=== PATIENT | male | born 1940 | race Caucasian/White ===

== ENCOUNTER 2018-03-31 20:32 | Inpatient (IN) | payer MEDICARE ==
[~2018-03-31] VITALS: Ht 182.9 cm; Wt 68.7 kg
[~2018-03-31 20:32] MED LIST: ACETAMINOP325 MG/10 PO; ALDACTONE25 MG PO; AMLODIPINE BESYL5 MG PO; ANTACID EXTRA300 MG PO; ARICEPT5 MG PO; ASPIR 8181 MG PO; ASPIRIN325 MG PO; ASPIRIN81 MG PO; ATORVASTATIN CA20 MG PO; BLUE EMU CREAM TOP; CENTRUM SILVER1 EAC3 PO; DIOVAN HCT 3201 EAC1 PO; DIOVAN160 MG PO; FLOVENT DISKUS50 MCG; FUROSEMIDE40 MG PO; GABAPENTIN300 MG PO; GLIMEPIRIDE2 MG PO; HYDROCHLOROTH12.5 M1 PO; IPRATROPIUM BRO30 ML; KLOR-CON M2020 MEQ PO; KLOR-CON25 MEQ PO; METFORMIN HCL500 M1 PO; METFORMIN HCL500 MG PO; METOPROLOL TART25 MG PO; MULTIVITAMINS1 EAC7 PO; OMEPRAZOLE20 M1 PO; RANITIDINE HCL300 MG PO; SUCRALFATE1 GM PO; TRAMADOL HCL E100 MG PO; ULTRAM50 MG PO; VALSARTAN/HCTZ PO; VITAMIN B12 SL; VITAMIN B12-FO1 EACH SL; ZOFRAN ODT4 MG SL
[2018-03-31] MEDS ORDERED: GLIMEPIRIDE2 MG PO (21:07)
[2018-03-31] MEDS ORDERED: IPRATROPIU0.2 MG/1 M NEB (21:07)
[2018-03-31] MEDS ORDERED: ARICEPT5 MG PO (21:07)
[2018-03-31] MEDS ORDERED: JANUVIA100 MG PO (21:08)
[2018-03-31 21:47] LABS: BASOPHILS % 0.2 % (0.0-1.0); EOSINOPHILS # (AUTO) 0.1 (0.0-0.4); EOSINOPHILS % 0.8 % (0.0-6.0); HEMATOCRIT 34.9 % (38.2-49.6); HEMOGLOBIN 11.7 g/dL (14.0-18.0); LYMPHOCYTES % 8.7 % (18.0-39.1); MEAN CORPUSCULAR HEMOGLOBIN 32.8 pg (28-32); MEAN CORPUSCULAR HGB CONC 33.5 g/dL (31-35); MEAN CORPUSCULAR VOLUME 97.8 fL (81-99); MONOCYTES # (AUTO) 0.7 (0.2-0.8); MONOCYTES % 5.8 % (4.4-11.3); NEUTROPHILS % 83.8 % (38.7-80.0); PLATELET COUNT 280 x10e3/uL (140-360); RED BLOOD COUNT 3.57 x10e6/uL (4.3-5.7); RED CELL DISTRIBUTION WIDTH 13.1 % (11.7-14.4)
[2018-03-31 22:01] LABS: ALBUMIN 3.9 g/dL (3.5-5.0); ALBUMIN/GLOBULIN RATIO 1.1 (0.8-2.0); ANION GAP 18.8 mmol/L (8-16); CALCIUM 9.5 mg/dL (8.4-10.2); CREATININE, SERUM 1.36 mg/dL (0.72-1.25); MAGNESIUM 2.3 MG/DL (1.3-2.1); POTASSIUM 3.8 mmol/L (3.5-5.1)
[2018-03-31] MEDS ORDERED: CEFEPIME HCL 2 GM VIAL IV STA (22:04)
[2018-03-31] MEDS ORDERED: SODIUM CHLORIDE 0.9% 1000ML 1,000 ML IV STA (22:04)
[2018-03-31] MEDS ORDERED: SODIUM CHLORIDE 0.9% 1000ML 1,000 ML ONE (22:05)
[2018-03-31 22:08] LABS: CREATINE KINASE MB 4.6 ng/mL (0-5.0)
[2018-03-31] MEDS ORDERED: DIPHENHYDRAMINE HCL INJ 50 MG/ML VIAL IV ONE (22:15)
[2018-03-31] MEDS ORDERED: LORAZEPAM INJ 2 MG/ML VIAL IM ONE (22:15)
[2018-03-31] MEDS ORDERED: VANCOMYCIN 1GM/NS 250 ML 250 ML IV ONE (22:15)
[2018-03-31] MEDS ORDERED: HALOPERIDOL LACTATE 5 MG/ML VIAL IM ONE (22:15)
[2018-03-31] MEDS ORDERED: VANCOMYCIN 1GM/NS 250 ML 250 ML ONE (22:34)
--- NOTE | 2018-03-31 23:07 | Diagnostic Imaging Report ---
EXAM: CHEST SINGLE (PORTABLE), AP 1 view INDICATION: Fall, low O2 sats COMPARISON: AP view of the chest July 24, 2015 FINDINGS: LINES/TUBES: None LUNGS: Stable findings of interstitial edema and bibasilar atelectasis. PLEURA: Indeterminate for small effusion on the left. HEART AND MEDIASTINUM: Stable enlargement of the cardiomediastinal silhouette and surgical changes of coronary artery bypass. BONES AND SOFT TISSUES: No acute findings. IMPRESSION: Stable appearance of the chest with interstitial edema and bibasilar atelectasis. Signed by: Dr. Verna Weber M.D. on 03/31/2018 11:04 PM
[2018-03-31 23:45] LABS: BILIRUBIN,URINE NEGATIVE (NEGATIVE); CLARITY,URINE CLEAR (CLEAR); COLOR,URINE YELLOW (YELLOW); KETONES,URINE NEGATIVE (NEGATIVE); LEUKOCYTE ESTERASE ,URINE NEGATIVE (NEGATIVE); NITRITE,URINE NEGATIVE (NEGATIVE); PROTEIN,URINE DIPSTICK 1+ (NEGATIVE); URINE UROBILINOGEN 0.2 mg/dL (0.2 - 1)
[2018-03-31 23:46] LABS: WBC,URINE (MAN) 0-5 /HPF (0-5)
[2018-03-31 23:47] LABS: EPITHELIAL CELLS,URINE FEW /LPF
--- NOTE | 2018-04-01 01:08 | Diagnostic Imaging Report ---
EXAMINATION: Head CT HISTORY: Status post fall, head trauma, hypertension COMPARISON: Brain MRI on 04/25/2015. TECHNIQUE: Multidetector axial images were obtained without contrast from the foramen magnum to the vertex . The images were reconstructed using brain and bone algorithms. Thin section brain images were reformatted into coronal and sagittal planes. Image quality: Motion/streaking artifact limits the evaluation of the skull base and posterior cranial fossa. Dose modulation, iterative reconstruction, and/or weight based adjustment of the mA/kV was utilized to reduce the radiation dose to as low as reasonably achievable. FINDINGS: Parenchyma: 1. Few scattered white matter hypodensities, most likely nonspecific chronic microvascular ischemic changes. 2. No mass or hemorrhage. No CT evidence of acute territorial vascular insult. Extra-axial spaces:No abnormal density. No extra-axial fluid collections Brain volume: Normal for age. Ventricles: No hydrocephalus or displacement. Arteries: No density suggestive of thrombus. Dural sinuses: No abnormal density. Extra-axial spaces: No abnormal density. Foramen magnum: No mass, Chiari malformation, or basilar invagination. Sella: Partially empty, mostly CSF filled. Paranasal/mastoid sinuses: Imaged portions unremarkable. Skull/Scalp: No lytic or blastic lesions. No fractures. IMPRESSION: 1. No acute posttraumatic intracranial abnormality, particularly no hemorrhage. 2. Persistent mild chronic microvascular ischemic changes. Signed by: Dr. Leela Maria M.D. on 04/01/2018 1:04 AM
--- NOTE | 2018-04-01 01:14 | Diagnostic Imaging Report ---
EXAMINATION: CT of the cervical spine HISTORY: Status post fall, head trauma, hypertension, head and neck pain. COMPARISON: None available TECHNIQUE: Multidetector helical axial images were obtained without contrast from the foramen magnum to T1. The images were reconstructed using bone and soft tissue algorithms and were viewed in axial, sagittal and coronal planes. Dose modulation, iterative reconstruction, and/or weight based adjustment of the mA/kV was utilized to reduce the radiation dose to as low as reasonably achievable. Image quality: Artifact from patient's motion and rotation limits evaluation. FINDINGS: Alignment: Age-indeterminate anterolisthesis at C4-C5. Cervicothoracic kyphosis. Soft tissues: Normal Vertebrae: Normal height and density. No acute fracture, infection or neoplasm. Minimal chronic anterior wedging of the C5, C6, C7, T1 and T2 vertebral bodies. Degenerative changes: C1-C2: Normal C2-C3: Disc osteophyte, uncovertebral and facet arthrosis. Moderate canal stenosis. C3-C4: Disc osteophyte, uncovertebral and facet arthrosis. Moderate canal and foraminal stenoses. C4-C5: Disc osteophyte, uncovertebral and facet arthrosis. Moderate canal and left foraminal stenosis. C5-C6: Disc osteophyte, uncovertebral and facet arthrosis. Moderate canal and foraminal narrowing. C6-C7: Disc osteophyte, no significant stenoses C7-T1: Facet arthrosis. Minimal anterolisthesis. IMPRESSION: Suboptimal study due to patient motion, if clinically indicated consider repeat study. 1. In spite of this limitation no discrete acute cervical spine fracture or dislocation. 2. Chronic multilevel degenerative changes as detailed above. Note: Acute postraumatic spinal cord, vascular or ligamentous injuries cannot adequately be assessed by CT. Signed by: Dr. Leela Maria M.D. on 04/01/2018 1:11 AM
[2018-04-01] MEDS ORDERED: DEXTROSE 50% SYRINGE 50 ML IV PRN (01:45)
[2018-04-01] MEDS ORDERED: ONDANSETRON HCL INJ 2 MG/ML VIAL IV PRN (01:45)
[2018-04-01] MEDS ORDERED: CEFEPIME HCL 1 GM VIAL IV SCH (01:45)
--- OUTSIDE RECORDS SUMMARY | 2018-04-01 01:46 | XMS REPORT ---
Author [facility] Address Unknown Phone Unavailable Care Team Providers Care Appeals Rn Name Role Phone Anne ROWAN Unavailable Unavailable Problems This patient has no known problems. Allergies, Adverse Reactions, Alerts This patient has no known allergies or adverse reactions. Medications This patient has no known medications. Results Test Description Test Time Test Comments Text Results Atomic Results Result Comments CT CERVICAL SPINE WO 2018-04-01 01:05:00 [place] [address] Patient Name: EMELYN LOVE MR #: [id number] : 1940 Age/Sex: 77/M Req #: [id number] Adm Physician: Ordered by: RENEA ARCHULETA SCIENTIFIC AIDE Report #: [id number] Location: ER Room/Bed: Procedure: [id number] CT/CT CERVICAL SPINE WO Exam Date: 04/01/18 Exam Time: 2349 REPORT STATUS: Signed EXAMINATION: CT of the cervical spine HISTORY: Status post fall, head trauma, hypertension, head and neck pain. COMPARISON: None available TECHNIQUE: Multidetector helical axial images were obtained without contrast from the foramen magnum to T1. The images were reconstructed using bone and soft tissue algorithms and were viewed in axial, sagittal and coronal planes. Dose modulation, iterative reconstruction, and/or weight based adjustment of the mA/kV was utilized to reduce the radiation dose to as low as reasonably achievable. Image quality: Artifact from patient's motion and rotation limits evaluation. FINDINGS: Alignment: Age- indeterminate anterolisthesis at C4-C5. Cervicothoracic kyphosis. Soft tissues: Normal Vertebrae: Normal height and density. No acute fracture, infection or neoplasm. Minimal chronic anterior wedging of the C5, C6, C7, T1 and T2 vertebral bodies. Degenerative changes: C1-C2: Normal C2-C3: Disc osteophyte, uncovertebral and facet arthrosis. Moderate canal stenosis. C3-C4: Disc osteophyte, uncovertebral and facet arthrosis. Moderate canal and foraminal stenoses. C4-C5: Disc osteophyte, uncovertebral and facet arthrosis. Moderate canal and left foraminal stenosis. C5-C6: Disc osteophyte, uncovertebral and facet arthrosis. Moderate canal and foraminal narrowing. C6-C7: Disc osteophyte, no significant stenoses C7-T1: Facet arthrosis. Minimal anterolisthesis. IMPRESSION: Suboptimal study due to patient motion, if clinically indicated consider repeat study. 1. In spite of this limitation no discrete acute cervical spine fracture or dislocation. 2. Chronic multilevel degenerative changes as detailed above. Note: Acute postraumatic spinal cord, vascular or ligamento us injuries cannot adequately be assessed by CT. Signed by: Dr. Saul Maria M.D. on 04/01/2018 1:11 AM Dictated By: SAUL MARIA MD 0 Transcribed By: MIKEY on 04/01/18110 COPY TO: RENEA ARCHULETA NP CT BRAIN WO 2018-04-01 01:03:00 [place] [address] Patient Name: EMELYN LOVE MR #: [id number] : 1940 Age/Sex: 77/M Req #: [id number] Adm Physician: Ordered by: RENEA ARCHULETA NP Report #: [id number] Location: ER Room/Bed: Procedure: [id number] CT/CT BRAIN WO Exam Date: 04/01/18 Exam Time: 2349 REPORT STATUS: Signed EXAMINATION: Head CT HISTORY: Status post fall, head tr auma, hypertension COMPARISON: Brain MRI on 04/25/2015. TECHNIQUE: Multidetector axial images were obtained without contrast from the foramen magnum to the vertex . The images were reconstructed using brain and bone algorithms. Thin section brain images were reformatted into coronal and sagittal planes. Image quality: Motion/streaking artifact limits the evaluation of the skull base and posterior cranial fossa. Dose modulation, iterative reconstruction, and/or weight based adjustment of the mA/kV was utilized to reduce the radiation dose to as low as reasonably achievable. FINDINGS: Parenchyma: 1. Few scattered white matter hypodensities, most likely nonspecific chronic microvascular ischemic changes. 2. No mass or hemorrhage. No CT evidence of acute territorial vascular insult. Extra-axial spaces:No abnormal density. No extra-axial fluid collections Brain volume: Normal for age. Ventricles: No hydrocephalus or displacement. Arteries: No density suggestive of thrombus. Dural sinuses: No abnormal density. Extra-axial spaces: No abnormal density. Foramen magnum: No mass, Chiari malfo rmation, or basilar invagination. Sella: Partially empty, mostly CSF filled. Paranasal/mastoid sinuses: Imaged portions unremarkable. Skull/Scalp: No lytic or blastic lesions. No fractures. IMPRESSION: 1. No acute posttraumatic intracranial abnormality, particularly no hemorrhage. 2. Persistent mild chronic microvascular ischemic changes. Signed by: Dr. Saul Maria M.D. on 04/01/2018 1:04 AM Dictated By: SAUL MARIA MD 3 Transcribed By: MIKEY on 04/01/18103 COPY TO: RENEA ARCHULETA SCIENTIFIC AIDE CHEST SINGLE (PORTABLE) 2018-03-31 23:02:00 [place] [address] Patient Name: EMELYN LOVE MR #: [id number] : 1940 Age/Sex: 77/M Req #: [id number] [facility] Physician: Ordered by: TIRSO ROWAN MD Report #: [id number] Location: ER Room/Bed: Procedure: [id number] DX/CHEST SINGLE (PORTABLE) Exam Date: Exam Time: REPORT STATUS: Signed EXAM: CHEST SINGLE (PORTABLE), AP 1 view INDICATION: Fall, l ow O2 sats COMPARISON: AP view of the chest July 24, 2015 FINDINGS: LINES/TUBES: None LUNGS: Stable findings of interstitial edema and bibasilar atelectasis. PLEURA: Indeterminate for small effusion on the left. HEART AND MEDIASTINUM: Stable enlargement of the cardiomediastinal silhouette and surgical changes of coronary artery bypass. BONES AND SOFT TISSUES: No acute findings. IMPRESSION: Stable appearance of the chest with interstitial edema and bibasilar atelectasis. Signed by: Dr. Shen Weber M.D. on 03/31/2018 11:04 PM Dictated By: SHEN WEBER MD 03 Transcribed By: MIKEY on 03/31/182303 COPY TO: TIRSO ROWAN MD
[2018-04-01 06:01] LABS: CREATINE KINASE MB 11.3 ng/mL (0-5.0)
[2018-04-01] MEDS: INSULIN LISPRO 100 UNIT/1 ML 3ML VIAL SQ SCH ×4 (08:08→21:33)
--- NOTE | 2018-04-01 09:00 | Diagnostic Imaging Report ---
PROCEDURE:X-RAY PELVIS, AP VIEW COMPARISON:None. INDICATIONS:FALL FINDINGS: No acute, displaced fracture or dislocation. Femoral heads project appropriately over the acetabula. Mild symmetric joint space narrowing with marginal osteophytosis of the hip joints. Sacroiliac joints are maintained. Degenerative facet arthropathy of the lumbar spine, partially visualized. Soft tissues unremarkable. Atherosclerotic vascular calcifications. CONCLUSION: No acute osseous abnormalities. Dictated by: Mihai Rain M.D. on 04/01/2018 at 9:10 Electronically approved by: Mihai Rain M.D. on 04/01/2018 at 9:10
--- NOTE | 2018-04-01 09:02 | Diagnostic Imaging Report ---
PROCEDURE:X-RAY RIGHT ELBOW, COMPLETE COMPARISON:None. INDICATIONS:FALL FINDINGS: No acute, displaced fracture or dislocation. No elbow joint effusion. Soft tissues are unremarkable. Joint space is well-maintained. CONCLUSION: No acute osseous abnormality. Dictated by: Mihai Rain M.D. on 04/01/2018 at 9:12 Electronically approved by: Mihai Rain M.D. on 04/01/2018 at 9:12
--- NOTE | 2018-04-01 09:07 | Diagnostic Imaging Report ---
PROCEDURE:X-RAY LEFT KNEE, THREE OR MORE VIEWS COMPARISON:None. INDICATIONS:FALL FINDINGS: No acute, displaced fracture or dislocation. No joint effusion. Moderate tricompartmental joint space narrowing with marginal osteophytosis. Meniscal calcifications with partial medial extrusion of the medial meniscus. Atherosclerotic vascular calcifications. Surgical clips in the soft tissues in the medial lower thigh may reflect prior venous graft harvest. Soft tissues otherwise unremarkable. CONCLUSION: No acute osseous abnormalities. Moderate tricompartmental osteoarthrosis. Dictated by: Mihai Rain M.D. on 04/01/2018 at 9:17 Electronically approved by: Mihai Rain M.D. on 04/01/2018 at 9:17
[2018-04-01] MEDS: FAMOTIDINE 20 MG/2 ML VIAL IV SCH ×2 (09:15→23:16)
[2018-04-01] MEDS: CEFEPIME HCL 1 GM VIAL IV SCH (10:50)
--- NOTE | 2018-04-01 14:20 | Consultation ---
DATE OF CONSULTATION: April 01, 2018 CARDIOLOGY CONSULTATION REASON FOR CONSULTATION: Elevated troponins. CHIEF COMPLAINT: Status post falls. HISTORY OF PRESENT ILLNESS: This is a 77-year-old male with history of frontal temporal dementia, CAD status post CABG in 2014, chronic systolic heart failure, debility, failure to thrive, diabetes, hypertension. Patient presents to [facility] ER apparently with multiple falls, was noted to be in acute kidney injury. Troponin was checked, which troponin was 0.6; therefore, Cardiology was consulted. Patient seen in room. Again, patient is demented. patient unable to give any information, but is at bedside. reports that patient has been falling on multiple occasions. He fell twice on Sunday. He again fell twice on Sunday, and again he fell Sunday evening in the shower; and, therefore, had patient come to the ER for further evaluation. At baseline patient uses a walker for assistance and has to grab the snyder for assistance to keep himself up. Patient is nonverbal. Patient unable to give any information. No reports of dizziness, lightheadedness, chest pain, shortness of breath. EKG noted, sinus rhythm with no acute changes suggestive of an acute event. PAST MEDICAL HISTORY 1. CAD status post CAB[place] [address] Tubbs with chronic heart failure. 2. Diabetes. 3. Hypertension. 4. Reflux. 5. Colon cancer status post colon resection. 6. Frontal temporal dementia. 7. Arthritis. SURGICAL HISTORY 1. Hemorrhoidectomy. 2. Coronary artery disease status post CABG in November 2014. 3. Left shoulder surgery. FAMILY HISTORY: Mother at age of 70, apparently heart disease. Father at the age of 80, had a history of liver cancer. SOCIAL HISTORY: He is . He is a former smoker, and he quit in 1966. No alcohol use. 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 ALLERGIES: NO KNOWN ALLERGIES. REVIEW OF SYSTEMS: Unable to obtain due to patient's baseline dementia. PHYSICAL EXAMINATION VITAL SIGNS: Height 70 inches, weight 150 pounds, BMI 21. Current vital signs: Temperature 98.3, pulse 81, respiratory rate 16, blood pressure 139/96, pulse ox 98% on 2 liters nasal cannula. GENERAL: This is a demented male unable to give any information, very easily agitated. SKIN-MOELLER: Several abrasions noted in his bilateral elbows and also bilateral knees after falls. HEENT: Normocephalic. Pupils equal and reactive. Extraocular motor intact. Trachea midline. Oral mucosa pink. No JVD. No thyromegaly noted. HEART: Regular rate and rhythm. No murmurs or clicks noted. LUNGS: Rhonchi throughout and intermittent wheezing. ABDOMEN: Soft, nontender, nondistended. No organomegaly noted. MUSCULOSKELETAL: Abrasions in bilateral elbows and bilateral knees. Also positive for sternotomy. VASCULAR: +2 bilateral radial pulses, +1 DP/PT pulses. No lower extremity edema noted. NEUROLOGIC: Unable to assess due to patient's baseline dementia and patient unable to follow any commands, becomes very agitated, and also patient is nonverbal. LABS: White count 11.9, hemoglobin 11, hematocrit 34, platelets 280. CHEMISTRY: Lactic acid 65. Sodium 135, potassium 3.8, chloride 99, bicarb 21, BUN 27, creatinine 1.3, glucose 318. Troponin initial 0.3, next 0.6. BNP 821. CHEST X-RAY: Showing some interstitial edema. X-RAY OF THE ELBOW, KNEE, PELVIS: No fractures. COMPUTED TOMOGRAPHY OF THE BRAIN: Mild chronic microvascular ischemic changes. CERVICAL SPINE: Degenerative joint disease. No discrete cervical spine fractures or dislocations. ASSESSMENT 1. Sepsis. 2. Status post falls. 3. Failure to thrive. 4. Dementia. 5. Debility. 6. Acute kidney injury. 7. Diabetes. 8. Coronary artery disease status post coronary artery bypass graft in 2014. 9. Chronic systolic heart failure. PLAN-MOELLER 1. Patient presents with multiple falls noted with lactic acidosis, has received fluids and antibiotics. No reports of chest pains or active anginal symptoms. Will treat patient medically given his multiple health issues. However, will get an echo to evaluate heart function and structure. Will start patient on aspirin therapy. 2. Will continue telemetry monitoring to evaluate for any arrhythmias. 3. Will follow patient's progression and adjust cardiotherapy as course dictates. Thank you very much for this consult. Dictated by: Mihai Lorenz NP Job#: [id number]
[2018-04-02] MEDS: CEFEPIME HCL 1 GM VIAL IV SCH ×3 (01:31→22:41)
[2018-04-02] MEDS: ZIPRASIDONE 20 MG VIAL IM PRN ×2 (05:00→16:27)
[2018-04-02 07:28] LABS: BASOPHILS % 0.4 % (0.0-1.0); EOSINOPHILS # (AUTO) 0.1 (0.0-0.4); EOSINOPHILS % 0.5 % (0.0-6.0); HEMATOCRIT 40.2 % (38.2-49.6); HEMOGLOBIN 13.6 g/dL (14.0-18.0); LYMPHOCYTES # (AUTO) 1.5 (1.0-3.2); LYMPHOCYTES % 15.5 % (18.0-39.1); MEAN CORPUSCULAR HEMOGLOBIN 32.5 pg (28-32); MEAN CORPUSCULAR HGB CONC 33.8 g/dL (31-35); MEAN CORPUSCULAR VOLUME 95.9 fL (81-99); MONOCYTES # (AUTO) 0.5 (0.2-0.8); MONOCYTES % 5.5 % (4.4-11.3); NEUTROPHILS # (AUTO) 7.3 (2.1-6.9); NEUTROPHILS % 77.9 % (38.7-80.0); PLATELET COUNT 304 x10e3/uL (140-360); RED BLOOD COUNT 4.19 x10e6/uL (4.3-5.7); RED CELL DISTRIBUTION WIDTH 13.1 % (11.7-14.4)
[2018-04-02] MEDS: INSULIN LISPRO 100 UNIT/1 ML 3ML VIAL SQ SCH ×4 (07:48→21:00)
[2018-04-02 07:50] LABS: ALANINE AMINOTRANSFERASE 42 IU/L (0-55); ALBUMIN 3.7 g/dL (3.5-5.0); ALBUMIN/GLOBULIN RATIO 0.9 (0.8-2.0); ALKALINE PHOSPHATASE 90 IU/L (40-150); ANION GAP 18.2 mmol/L (8-16); BLOOD UREA NITROGEN 19 mg/dL (7-26); BUN/CREATININE RATIO 19 (6-25); CALCIUM 9.3 mg/dL (8.4-10.2); CARBON DIOXIDE 22 mmol/L (22-29); CHLORIDE 102 mmol/L (98-107); CHOL/HDL RATIO 2.8 (3.9-4.7); CHOLESTEROL 166 MD/DL (0-199); EST GLOMERULAR FILTRATION RATE > 60 ML/MIN (60-); GLUCOSE 191 mg/dL (74-118); HDL CHOLESTEROL 60 MG/DL (40-60); LDL CHOLESTEROL 92 MG/DL (60-130); POTASSIUM 3.2 mmol/L (3.5-5.1); SODIUM 139 mmol/L (136-145); TRIGLYCERIDES 68 MG/DL (0-149)
[2018-04-02] MEDS: FAMOTIDINE 20 MG/2 ML VIAL IV SCH ×2 (08:40→22:41)
[2018-04-02] MEDS: ASPIRIN 81 MG ENTERIC COATED PO SCH (08:40)
[2018-04-02] MEDS ORDERED: POTASSIUM CHLORIDE 20 MEQ TAB CR PO STA (11:35)
[2018-04-02] MEDS: METOPROLOL TARTRATE 25 MG TAB PO SCH (17:00)
[2018-04-02 20:00] VITALS: BP 169/91
[2018-04-03] VITALS (7 sets, daily range): BP systolic 120–169; BP diastolic 60–93
[2018-04-03] MEDS: ZIPRASIDONE 20 MG VIAL IM PRN ×3 (01:03→09:48)
[2018-04-03] MEDS: INSULIN LISPRO 100 UNIT/1 ML 3ML VIAL SQ SCH ×4 (07:30→21:28)
[2018-04-03] MEDS: ASPIRIN 81 MG ENTERIC COATED PO SCH ×2 (09:00→09:25)
[2018-04-03] MEDS: METOPROLOL TARTRATE 25 MG TAB PO SCH ×3 (09:00→17:00)
[2018-04-03] MEDS: FAMOTIDINE 20 MG/2 ML VIAL IV SCH ×2 (09:25→21:28)
[2018-04-03] MEDS: CEFEPIME HCL 1 GM VIAL IV SCH ×2 (09:25→21:28)
[2018-04-03] MEDS ORDERED: POTASSIUM CHLORIDE 10MEQ EA PO ONE (09:30)
--- NOTE | 2018-04-03 12:16 | Diagnostic Imaging Report ---
EXAM: CT Chest WITHOUT contrast INDICATION: Sepsis COMPARISON: None. TECHNIQUE: The Chest was scanned utilizing a multidetector helical scanner without the use of IV contrast. Coronal and sagittal reformations were obtained. IV CONTRAST: None COMPLICATIONS: None RADIATION DOSE: Total DLP: 545 mGy*cm Estimated effective dose: (DLP x 0.015 x size factor) mSv CTDIvol has been reviewed. It is below the limits set by the Radiation Protocol Committee (RPC). Appropriate CT dose reduction techniques were utilized. FINDINGS: Lines and Tubes: None. Lower Neck: Heterogeneous thyroid. Heart and Great Vessels: The aorta and main pulmonary artery measure 38 and 34 mm. respectively. No pericardial effusion. Advanced vascular calcifications and CABG changes. Lymph Nodes: Limited given lack of IV contrast. Scattered mediastinal lymph nodes, not distinctly enlarged by size criteria. The hilar regions are sub-optimally evaluated given lack of IV contrast. Lungs: Trachea and central bronchi are unremarkable with mild scattered peripheral run Q wall thickening. There is moderate biapical scarring. No pleural effusion present. Ill-defined linear and groundglass opacities in the lung bases poorly evaluated due to moderate respiratory motion, statistically atelectasis/scarring. Areas of nodularity in the apices statistically related to scarring. No definite focal consolidation. Upper abdomen: Limited. Moderate stool. Bones and Soft Tissues: Sternotomy changes. Advanced spinal curvature. IMPRESSION: 1. Within limitations of respiratory motion and nonenhanced exam, no definite focal consolidation. 2. Linear and groundglass opacities in the lung bases have the appearance of atelectasis/scarring. Additional biapical scarring. 3. Other findings as above. Signed by: Dr. Yonny Donato MD on 04/03/2018 12:13 PM
[2018-04-03] MEDS ORDERED: HALOPERIDOL LACTATE 5 MG/ML VIAL IM PRN (14:45)
--- NOTE | 2018-04-03 16:16 | Consultation ---
DATE OF CONSULTATION: April 03, 2018 NEUROLOGY CONSULT HISTORY OF PRESENT ILLNESS: Mr. Ford is nonverbal and encephalopathic. There are no family members available. Therefore, history is obtained from review of the electronic medical records, as well as hospital staff. Mr. Ford was admitted to [facility] on April 01, 2018, status post multiple falls and with sepsis, presumably from a urinary tract infection. While an inpatient, Mr. Ford has behaved in a physically aggressive manner. He has attempted repeatedly to get out of bed. He has grabbed staff by the arms or around the necks by their stethoscopes. When administered his oral medications, he spits them out at the staff. According to the patient's (per his nurse), this behavior has only been present during this hospitalization. Mr. Ford does not display similar behavior at home. Mr. Ford does carry a diagnosis of dementia. Specifically, he carries a diagnosis of primary progressive aphasia. He is under the care of Dr. Magdalena Benito, a neurologist. Dr. Benito has prescribed donepezil 5 mg by mouth at bedtime daily. While in the hospital, the patient has received Geodon 5 mg intramuscularly every 6 hours as needed for agitation. According to the patient's nurse, administration of this medication will calm the patient for approximately 60 to 90 minutes. After this period of time has passed, the patient once again becomes physically aggressive. REVIEW OF SYSTEMS: Unable to obtain secondary to the patient being nonverbal and encephalopathic. 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 PAST SURGICAL HISTORY: Tonsillectomy, hemorrhoidectomy, surgical repair of a hernia, resection of a mass from the right side of the back, near the shoulder, cholecystectomy/colon resection, cardiac catheterization, 3-vessel CABG, surgery to alleviate a small bowel blockage times 2, EGD, colonoscopy. PAST HOSPITALIZATIONS: Surgeries/procedures as listed. FAMILY MEDICAL HISTORY: The only documented family medical history is in the patient's parents. Mr. Ford's father is from liver cancer. His mother is from coronary artery disease. Any other pertinent family medical history is unknown. SOCIAL HISTORY: According to the patient's demographic sheet, he is . Mr. Ford is retired. The patient is reported to be a former smoker. He quit smoking cigarettes approximately 40 years ago. There is no documented current or prior alcohol or recreational drug use. HOME MEDICATIONS 1. Glimepiride 2 mg by mouth twice daily. 2. Januvia 100 mg by mouth daily. 3. Donepezil 10 mg by mouth daily. 4. Ipratropium bromide 2.5 mL nebulized 3 times daily as needed for shortness of breath. ALLERGIES: NO KNOWN DRUG ALLERGIES. NO KNOWN FOOD ALLERGIES. NO KNOWN ALLERGIES TO LATEX. NO KNOWN ALLERGIES TO IODINE OR OTHER CONTRAST MATERIALS. PHYSICAL EXAMINATION VITAL SIGNS: Height 72 inches, weight 147 pounds, BMI 20 kg per meter squared. Blood pressure 137/69 mmHg, pulse 65 beats per minute, respiratory rate 20 breaths per minute, oxygen saturation 97% on 2 L by nasal cannula. GENERAL: The patient is awake and alert. He is aggressive, repeatedly grabbing for arms, stethoscope, pin light, etc. HEENT: Normocephalic and atraumatic. Pupils cannot be adequately assessed. Moist mucous membranes. NECK: Supple. No appreciable thyromegaly. No appreciable carotid bruits. CARDIOVASCULAR: S1 and S2. Regular rate and rhythm. No murmurs, rubs, or gallops. RESPIRATORY: Clear to auscultation bilaterally. No wheezes, rhonchi or rales. EXTREMITIES: The skin is warm and dry. No clubbing, cyanosis, or edema. The posterior tibial and dorsalis pedis pulses are 1+ and symmetric. SKIN: Abrasions over the arms and legs. NEUROLOGIC: Memory/attention: The patient is awake and alert. He cannot answer orientation questions. CRANIAL NERVES: Examination is limited by patient behavior. Pupil reactivity and eye movements cannot be adequately assessed. The face appears symmetric. Hearing appears grossly intact to voice. The presence of a gag reflex cannot be assessed. STRENGTH: Bulk is diminished throughout. Mr. Ford moves all extremities spontaneously. Strength is grossly 5/5. Tone is normal. DTRs: Unable to assess secondary to patient's behavior. SENSATION: Mr. Ford withdrawals all 4 extremities to peripheral noxious stimulation. CEREBELLAR: Unable to assess secondary to the patient being encephalopathic. GAIT: Unable to assess secondary to the patient being encephalopathic and high risk for falls. SPEECH: The patient is nonverbal. INVOLUNTARY MOVEMENTS: None. PRONATOR DRIFT: As per motor exam. LABORATORY DATA: The patient's initial comprehensive metabolic panel was significant for an elevated BUN of 27, an elevated creatinine 1.36, and an estimated GFR 51. The initial comprehensive metabolic panel revealed an elevated serum glucose of 318. The patient's initial AST was elevated at 40. Lactic acid upon admission was 65.2. A repeat lactic acid several hours later was 12.1. B-natriuretic peptide at the time of admission was 821. Creatine kinase 459, 1269. CK-MB 4.6 and 11.3. Troponin I 0.031 and 0.627. Amylase 112. Lipase 27. The patient's most recent comprehensive metabolic panel is significant for hypokalemia with potassium of 3.2, an elevated serum glucose of 191, an elevated total bilirubin of 1.6, an elevated AST of 90, and an elevated serum globulin of 4.2. The most recent CBC with differential and platelets reveals a white blood cell count of 9.33 with 77.9% neutrophils, 15.5% lymphocytes, 5.5% monocytes, 0.5% eosinophils, and 0.4% basophils. A urinalysis collected on admission was significant for 1+ protein, 3+ glucose, 3+ blood, and 11-20 red blood cells. A urine culture collected on admission revealed mixed erlinda. DIAGNOSTIC STUDIES: Electrocardiogram on March 31, 2018, sinus rhythm at 99 beats per minute with sinus arrhythmia with fusion complexes. Chest x-ray on March 31, 2018, stable appearance of the chest with interstitial edema and bibasilar atelectasis. CT of the cervical spine on March 31, 2018, suboptimal study due to patient motion. If clinically indicated, consider repeat study. 1. In spite of this limitation, no discrete acute cervical spine fracture or dislocation. 2. Chronic multilevel degenerative changes as detailed above. Note: Acute posttraumatic spinal cord, vascular or ligamentous injuries cannot adequately be assessed by CT. CT of the brain without contrast on March 31, 2018, On my review, there is no evidence of recent large territorial ischemia, hemorrhage, mass, or mass effect. Cerebral volumes are appropriate for age. There are findings compatible with mild to moderate chronic small vessel ischemic disease. Pelvis x-ray on April 01, 2018, no acute osseous abnormalities. Knee x-ray on April 01, 2018, no acute osseous abnormalities. Moderate tricompartmental osteoarthritis. Elbow x-ray on April 01, 2018, no acute osseous abnormality. CT of the chest on April 03, 2018: 1. Within limitations of respiratory motion and nonenhanced exam, no definite focal consolidation. 2. Linear and ground-glass opacities in the lung bases have the appearance of atelectasis/scarring. Additional biapical scarring. 3. Other findings as above. ASSESSMENT AND PLAN: Mr. Ford is a 77-year-old man with a past medical history as detailed, admitted to [facility] on April 01, 2018, status post multiple falls with sepsis, presumably due to an underlying urinary tract infection. During this hospitalization, the patient has been agitated and has behaved in a physically aggressive manner towards hospital staff. The neurology service was consulted for recommendations regarding treatment of the patient's agitation. Mr. Ford's neurological examination is limited by his behavior. Other than the patient's aphasia, no focal deficits are noted. The patient's laboratory data and other diagnostic studies have been reviewed and are documented above. In my opinion, the patient's agitation and aggressive behavior are probably due to a combination of factors, which are as follows: Baseline dementia, super imposed infection (presumably an underlying urinary tract infection), and superimposed delirium secondary to the patient being outside his familiar environment and routine. RECOMMENDATIONS 1. Treatment with Geodon will be discontinued. Mr. Ford will be prescribed haloperidol 2 mg intramuscularly every 6 hours as needed for agitation. Treatment with benzodiazepines should be avoided as such medication may exacerbate the patient's agitation and aggression. When feasible, substitution with oral Seroquel 25 mg by mouth at bedtime or 25 mg by mouth every 12 hours should the initiated. 2. When Mr. Ford is taking oral medications, treatment with donepezil 10 mg by mouth at bedtime daily should be resumed. 3. Defer treatment of the remaining medical comorbidities to the primary and other services following the patient. Thank you for this consultation. I will continue to follow the patient while he remains in the hospital. Time spent 70 minutes. Job#: [id number] LIN FERMIN
[2018-04-03] MEDS: HALOPERIDOL LACTATE 5 MG/ML VIAL IM PRN (18:42)
[2018-04-04] VITALS (7 sets, daily range): BP systolic 124–178; BP diastolic 67–85
[2018-04-04] MEDS: HALOPERIDOL LACTATE 5 MG/ML VIAL IM PRN ×2 (02:18→11:15)
[2018-04-04] MEDS: INSULIN LISPRO 100 UNIT/1 ML 3ML VIAL SQ SCH ×4 (07:30→21:00)
[2018-04-04] MEDS: ASPIRIN 81 MG ENTERIC COATED PO SCH (09:00)
[2018-04-04] MEDS: METOPROLOL TARTRATE 25 MG TAB PO SCH ×2 (09:00→17:31)
[2018-04-04] MEDS: FAMOTIDINE 20 MG/2 ML VIAL IV SCH ×2 (09:00→21:00)
[2018-04-04] MEDS: CEFEPIME HCL 1 GM VIAL IV SCH ×2 (10:00→22:00)
[2018-04-05] MEDS: HALOPERIDOL LACTATE 5 MG/ML VIAL IM PRN (00:03)
[2018-04-05 04:32] VITALS: BP 132/62
[2018-04-05] MEDS: INSULIN LISPRO 100 UNIT/1 ML 3ML VIAL SQ SCH (07:30)
[2018-04-05 08:35] VITALS: BP 119/73
[2018-04-05] MEDS: FAMOTIDINE 20 MG/2 ML VIAL IV SCH (09:00)
[2018-04-05] MEDS: ASPIRIN 81 MG ENTERIC COATED PO SCH (09:00)
[2018-04-05] MEDS: METOPROLOL TARTRATE 25 MG TAB PO SCH (09:00)
[2018-04-05] MEDS: CEFEPIME HCL 1 GM VIAL IV SCH (10:00)
[2018-04-05 12:37] VITALS: BP 145/89
--- NOTE | 2018-04-05 14:54 | Discharge Summary ---
PRIMARY CARE PHYSICIAN: Dr. Reema Hoffmann. CONSULTANTS: Dr. Anila Banuelos and Dr. Renetta Arevalo. FINAL DIAGNOSES: 1. Status post sepsis without shock. The patient had toxic encephalopathy secondary to most likely pneumonia/urinary tract infection. 2. Baseline Alzheimer dementia with behavior disturbances. 3. Behavior problem with agitation. 4. Recurrent falls at home. SUMMARY: Patient is a 77-year-old male with recurrent falls at home. Patient came in with lactic acidosis. He is also with fever as well. Patient's workup is limited due to the patient's agitation but most likely prostatitis and upper respiratory infection. The patient also received medication for agitation as well. Further discussed with the patient's spouse as she lives with him at home and having difficulty caring for the patient without assistance. She has requests for multiple durable medical equipment through home health and nothing has been done and the patient was having difficulty with the situation and, therefore, he was having recurrent falls. Consultation with [facility] for patient to go home for assistance mostly also durable medical equipment as well. Patient stable and discharged home today. Follow up as an outpatient. Will continue to monitor the patient through hospice care. Job#: [id number]
== END 2018-04-05 16:14 | disposition hospice, home (50) | DRG 871 ==
LOC: ER 20:32 → ERHOLD 04-01 01:42 → MED/SURG2 04-02 18:32
PROVIDERS: ADMIT Internal Medicine; ATTEND Internal Medicine
DX: A41.9 Sepsis, unspecified organism (principal); R65.21 Severe sepsis with septic shock; G92 Toxic encephalopathy; J18.9 Pneumonia, unspecified organism; F02.81 Dementia in other diseases classified elsewhere, unspecified severity, with behavioral disturbance; N39.0 Urinary tract infection, site not specified; E87.2 Acidosis; N17.9 Acute kidney failure, unspecified; I50.22 Chronic systolic (congestive) heart failure; G30.9 Alzheimer's disease, unspecified; Z91.81 History of falling; N41.9 Inflammatory disease of prostate, unspecified; G31.01 Pick's disease; E11.42 Type 2 diabetes mellitus with diabetic polyneuropathy; Z79.4 Long term (current) use of insulin; I25.10 Atherosclerotic heart disease of native coronary artery without angina pectoris; Z86.12 Personal history of poliomyelitis; R62.7 Adult failure to thrive; Z95.1 Presence of aortocoronary bypass graft; I11.0 Hypertensive heart disease with heart failure; M19.90 Unspecified osteoarthritis, unspecified site; I48.0 Paroxysmal atrial fibrillation; Z79.01 Long term (current) use of anticoagulants; Z66 Do not resuscitate
CPT/HCPCS: 36415; 70450; 71045; 71250; 72125; 72170; 80053; 80061; 81001; 82150; 82550; 82553; 82948; 83605; 83690; 83735; 83880; 84484; 85025; 87086; 93005; 93306; 99284; J0692; J1200; J1630; J2060; J3370; J3486; J7030